=== PATIENT | female | born 2000 | race Caucasian/White ===

== ENCOUNTER 2022-02-28 05:27 | Emergency (ER) | payer OTHER ==
[2022-02-28] MEDS ORDERED: Lidocaine Viscous Sol 2% 15 ml UD Cup ONE (05:40)
[2022-02-28] MEDS ORDERED: Ondansetron PF 4 MG/2 ML Vial ONE (07:13)
[2022-02-28] MEDS ORDERED: Morphine 4 MG/ML VIAL ONE (07:13)
[2022-02-28] MEDS ORDERED: Iopamidol 370 76% 100 ML VIAL ONE (09:42)
== END 2022-02-28 08:18 | disposition home or self-care (01) ==
LOC: ERS 05:27
DX: J36 Peritonsillar abscess (principal)
CPT/HCPCS: 70491; 87081; 87430; 96374; 96375; J2270; J2405; Q9967